=== PATIENT | female | born 1960 | race Caucasian/White ===

== ENCOUNTER 2017-07-30 21:05 | Emergency (ER) | payer OTHER, MEDICAID ==
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
[2017-07-31 01:26] LABS: Bacteria,Urine 1+ /HPF (Negative); Bilirubin,Urine NEG (Negative); Blood,Urine SM (Negative); Ketones,Urine NEG (Negative); Leukocyte Esterase,Urine SM (Negative); Mucus,Urine FEW /HPF; Nitrite,Urine NEG (Negative); Protein,Urine <15 mg/dL mg/dL (Negative); Urobilinogen,Urine < 2.0 mg/dL (<2.0)
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
[2017-07-31] MEDS ORDERED: VALIUM PO ONE (03:09)
[2017-07-31] MEDS ORDERED: MOTRIN PO ONE (03:09)
[2017-07-31 03:58] VITALS: BP 158/83
== END 2017-07-31 03:58 | disposition home or self-care (01) ==
LOC: ED 21:05
DX: S22.42XA Multiple fractures of ribs, left side, initial encounter for closed fracture (principal); M50.30 Other cervical disc degeneration, unspecified cervical region; M80.88XA Other osteoporosis with current pathological fracture, vertebra(e), initial encounter for fracture; I10 Essential (primary) hypertension; E11.9 Type 2 diabetes mellitus without complications; Z87.891 Personal history of nicotine dependence; V49.59XA Passenger injured in collision with other motor vehicles in traffic accident, initial encounter; W22.12XA Striking against or struck by front passenger side automobile airbag, initial encounter; Y93.89 Activity, other specified; Y92.89 Other specified places as the place of occurrence of the external cause; Y99.8 Other external cause status
CPT/HCPCS: 72040; 72100; 81001

== ENCOUNTER 2017-12-07 14:06 | Outpatient (CLI) | payer MEDICAID ==
--- NOTE | 2017-12-07 15:52 | XRay Report ---
XRAY BILATERAL SHOULDER THREE VIEWS EACH: 12/07/17 14:06:00 CLINICAL: Bilateral shoulder pain. FINDINGS: Right: No fracture or dislocation. Mild osteopenia. Mild irregularity of the glenoid and mild irregularity at the greater tuberosity of the humerus. Normal acromioclavicular joint. Normal soft tissues. Left: No fracture or dislocation. Mild osteopenia. Mild irregularity of the inferior glenoid. Normal acromioclavicular joint. Normal soft tissues. IMPRESSION: Mild bilateral glenohumeral joint arthritis. Mild degenerative changes at the greater tuberosity of the right humerus.
== END 2017-12-07 14:07 | disposition home or self-care (01) ==
LOC: SPVIMAG 14:06
PROVIDERS: ATTEND Orthopaedic Surgery Sports Medicine
DX: M19.011 Primary osteoarthritis, right shoulder (principal); M19.012 Primary osteoarthritis, left shoulder; M85.811 Other specified disorders of bone density and structure, right shoulder; M85.812 Other specified disorders of bone density and structure, left shoulder